=== PATIENT | male | born 1945 | race Caucasian/White ===

== ENCOUNTER 2017-12-10 07:15 | Inpatient (IN) | payer OTHER, MEDICARE ==
[~2017-12-10 07:15] MED LIST: TRANEXAMIC ACID 1,000 MG in NS (SYRINGE) 50 ML IV ONE
[2017-12-10] MEDS ORDERED: THROMBIN (BOVINE) 20,000 UNIT VIAL TP ONE ×2 (09:50→17:27)
[2017-12-10] MEDS ORDERED: CHLORHEXIDINE GLUC HIBICLENS 118 ML BTL TP ONE (09:50)
[2017-12-10] MEDS ORDERED: CITRATE DEXTROSE SOLN 500 ML BAG ONE ×3 (09:50→16:54)
[2017-12-10] MEDS ORDERED: BUPIVACAINE 0.25% 30 ML SDV ONE ×2 (09:50→17:40)
[2017-12-10] MEDS ORDERED: BACITRACIN 50,000 UNITS/10 ML SYR IRR ONE ×2 (09:52→15:24)
[2017-12-10] MEDS ORDERED: morphINE PF 5 MG/10 ML INJ IT ONE (10:13)
[2017-12-10] MEDS ORDERED: ceFAZolin 2 GM/SWFI 2 GM/20 ML SYR IVP ONE (10:13)
[2017-12-10] MEDS ORDERED: fentaNYL 100 MCG/2 ML INJ IT ONE (10:13)
[2017-12-10] MEDS ORDERED: LR 1,000 ML IV ONE (10:14)
--- NOTE | 2017-12-10 11:42 | PDHPUP ---
History & Physical Update H&P update statement: This history and physical update is based on an assessment of the patient which was completed after admission or registration (within 24 hours), but prior to the surgery/procedure. H&P update: H&P reviewed & patient examined, no change in patient's condition since H&P completed
[2017-12-10] MEDS ORDERED: MIDAZOLAM 2 MG/2 ML VIAL IVP ONE (11:50)
--- NOTE | 2017-12-10 11:50 | PDANEPAE ---
ANE History of Present Illness Lumbar stenosis ANE Past Medical History - Cardiovascular History Hx Hypertension: No Hx Arrhythmias: No Hx Chest Pain: No Hx Coronary Artery / Peripheral Vascular Disease: No Hx CHF / Valvular Disease: No Hx Palpitations: No - Pulmonary History Hx COPD: No Hx Asthma/Reactive Airway Disease: No Hx Recent Upper Respiratory Infection: No Hx Oxygen in Use at Home: No Hx Sleep Apnea: No Sleep Apnea Screening Result - Last Documented: Negative Pulmonary History Comment: smoked and quit in age 19's - Neurologic History Hx Cerebrovascular Accident: No Hx Seizures: Yes Hx Dementia: No Neurologic History Comment: December "grand mal seizure in street in [facility]" was under increased pressure. Took seizure Rx x 2 wks- no seizure since. - Endocrine History Hx Diabetes: No - Renal History Hx Renal Disorders: Yes Renal History Comment: BPH symptoms - Liver History Hx Hepatic Disorders: No - Neurological & Psychiatric Hx Hx Neurological and Psychiatric Disorders: Yes Neurological / Psychiatric History Comment: spondylolisthesis-back pain radiates down R leg - Cancer History Hx Cancer: No - Congenital Disorder History Hx Congenital Disorders: No - GI History Hx Gastrointestinal Disorders: No - Other Health History Other Health History: n/a - Chronic Pain History Chronic Pain: Yes (back/R leg) - Surgical History Prior Surgeries: ingunial hernia repair 08-18. Greenlight laser 08-12-17. bilat total knees. throat sx "false Vocal cord". R shoulder sx -late 60's or 70's. knee surgeries ANE Review of Systems Review of Systems: - Exercise capacity METS (RN): 6 METS ANE Patient History - Allergies Allergies/Adverse Reactions: Penicillins Allergy (Verified 11/25/17 15:07) Unknown Quinolones Allergy (Verified 11/25/17 15:07) "IM IN CRUTCHES W/IN A DAY" - Home Medications Home medications: home medication list seen and reviewed Home Medications: Ascorbic Acid [Vitamin C 500 mg (*)] 500 mg PO DAILY 11/18/17 [Last Taken ] Calcium Carbonate [Oyster Shell Calcium 500 mg (*)] 500 mg PO DAILY 11/18/17 [ Last Taken 12/09/17] Herbals/Supplements -Info Only 1 ea PO DAILY 11/18/17 [Last Taken Unknown] Ibuprofen [Motrin (*)] 200 mg PO DAILY PRN 11/18/17 [Last Taken 12/06/17] - NPO status NPO Since - Liquids (Date): 12/09/17 NPO Since - Liquids (Time): 08:30 NPO Since - Solids (Date): 12/09/17 NPO Since - Solids (Time): 20:30 - Anes Hx Anes Hx: no prior problems (Fighting on emergernce ) - Smoking Hx Smoking Status: Former smoker ANE Labs/Vital Signs - Vital Signs Blood Pressure: 139/70 Heart Rate: 54 Respiratory Rate: 16 O2 Sat (%): 96 Height: 160.02 cm Weight: 66.678 kg ANE Physical Exam - Airway Neck exam: FROM Mallampati Score: Class 2 Mouth exam: poor dentition - Pulmonary Pulmonary: clear to auscultation - Cardiovascular Cardiovascular: regular rate and rhythym - ASA Status ASA Status: II ANE Anesthesia Plan Anesthesia Plan: general endotracheal anesthesia
[2017-12-10] MEDS ORDERED: GLYCOPYRROLATE 0.2 MG/1 ML VIAL ONE (12:00)
[2017-12-10] MEDS ORDERED: ROCURONIUM 50 MG/5 ML VIAL ONE (12:00)
[2017-12-10] MEDS ORDERED: fentaNYL 100 MCG/2 ML INJ ONE ×7 (12:01→19:59)
[2017-12-10] MEDS ORDERED: PROPOFOL/EMULSION 500 MG/50 ML BOTTLE IV ONE (12:02)
[2017-12-10] MEDS ORDERED: REMIFENTANIL HCL 1 MG VIAL ONE (12:02)
[2017-12-10] MEDS ORDERED: PROPOFOL 200 MG/20 ML VIAL ONE (12:02)
[2017-12-10] MEDS ORDERED: PHENYLEPHRINE HCL 100 MCG/ML SYR ONE (12:49)
[2017-12-10] MEDS ORDERED: ceFAZolin 1 GM VIAL ONE (15:32)
[2017-12-10] MEDS ORDERED: DEXAMETHASONE 4 MG/ML VIAL ONE (15:33)
[2017-12-10] MEDS ORDERED: PROMETHAZINE HCL 25 MG/ML INJ IVP PRN (17:33)
[2017-12-10] MEDS ORDERED: NALOXONE HCL 0.4 MG/ML INJ IVP PRN ×2 (17:33→18:40)
[2017-12-10] MEDS ORDERED: ONDANSETRON 4 MG/2 ML VIAL IVP PRN ×2 (17:33→18:40)
[2017-12-10] MEDS ORDERED: ONDANSETRON 4 MG/2 ML VIAL ONE (18:18)
[2017-12-10] MEDS ORDERED: diphenhydrAMINE 25 MG CAP PO PRN (18:40)
[2017-12-10] MEDS ORDERED: ONDANSETRON DISINTEGRATING 4 MG TAB PO PRN (18:40)
[2017-12-10] MEDS ORDERED: BISACODYL 10 MG SUPP PR PRN (18:40)
[2017-12-10] MEDS ORDERED: MAGNESIUM HYDROXIDE 30 ML UDCUP PO PRN (18:40)
[2017-12-10] MEDS ORDERED: LACTULOSE 20 GM/30 ML UDCUP PO PRN (18:40)
[2017-12-10] MEDS ORDERED: METHOCARBAMOL 750 MG TAB PO PRN (18:40)
[2017-12-10] MEDS ORDERED: oxyCODONE IR 5 MG TAB PO PRN (18:40)
[2017-12-10] MEDS ORDERED: morphINE PCA 30 MG/30 ML PCA IV PRN (18:40)
--- NOTE | 2017-12-10 18:40 | POSTOPPROG ---
Post Op Note Date of Operation: 12/10/17 Surgeon: Austin Arboleda [employer] Sharpshooter: PENG Jensen Anesthesiologist: MD Chepe Anesthesia: GET(General Endotracheal) Pre-op Diagnosis: L2-S1 DJD/ stenosis, L4/5 grade 2 spondylolisthesis Post-op Diagnosis: same Indication: Severe LBP and leg pain Procedure: L2-S1 TLIF Findings: severe DJD, stenosis L2-S1 Inf/Abcess present in the surg proc area at time of surgery?: No EBL: 100-500 Complications: None Drains: Noah Oden (To bulb suction)
[2017-12-10] MEDS ORDERED: NS W/ 20 KCl/L 1,000 ML IV SCH (18:45)
--- NOTE | 2017-12-10 18:51 | SOAPPROG ---
SOAP Progress Note Assessment/Plan: POST OP CHECK: Assessment: Doing well s/p L2-S1 TLIF Plan: CPM in PACU. transfer to floor per protocol MARK to bulb suction 12/10/17 18:46 Subjective: awake, comfortable, Objective: Vital Signs Temp Pulse Resp BP Pulse Ox 36.4 C 54 L 16 139/70 H 96 12/10/17 11:03 12/10/17 12:43 12/10/17 12:43 12/10/17 12:43 12/10/17 12:43 Neuro: MENDOZA, follows commands x 4, PERRLA nods his head to questions HR: 90 BP:145/70 O2: 100% face mask ICD10 Worksheet Patient Problems: Problems Problem Status Onset Degenerative lumbar spinal stenosis Acute Spondylisthesis Acute - ICD10 Problem Qualifiers (1) Spondylisthesis (2) Degenerative lumbar spinal stenosis
--- NOTE | 2017-12-10 18:56 | POSTANESTH ---
Post Anesthetic Evaluation Cardiovascular Status: Similar to Pre-Op Cond Respiratory Status: Similar to Pre-op Cond. Level of Consciousness/Mental Status: Alert and Oriented Pain Control: Adequate, Prn Tx Ordered Nausea/Vomiting Control: Adequate, Prn Tx Ordered Complications Possibly Related to Anesthesia: None Noted (Somewhat restless. Moving all ext and good vision.)
[2017-12-10] MEDS ORDERED: HYDROmorphONE/DILAUDID 2 MG/ML INJ ONE (18:59)
[2017-12-10] MEDS: fentaNYL 100 MCG/2 ML INJ IVP PRN ×2 (19:02→19:21)
[2017-12-10] MEDS: HYDROmorphONE/DILAUDID 2 MG/ML INJ IVP PRN ×3 (19:04→19:39)
--- NOTE | 2017-12-10 20:33 | GOP ---
[f rep st] OPERATIVE REPORT DATE OF OPERATION: 12/10/2017 SURGEON: Austin Arboleda MD NEUROSURGEON: Austin Arboleda. PAPER TESTER: Joe Jensen. ANESTHESIA: General endotracheal. PREOPERATIVE DIAGNOSIS: 1. Severe multilevel lumbar spinal stenosis with unstable grade 2 L4-5 spondylolisthesis and critica l lateral recess impingement. 2. Intractable low back pain. 3. Right greater than left lower extremity radicular and neurogenic claudication symptoms. 4. Failed conservative care. POSTOPERATIVE DIAGNOSIS: 1. Severe multilevel lumbar spinal stenosis with unstable grade 2 L4-5 spondylolisthesis and critica l lateral recess impingement. 2. Intractable low back pain. 3. Right greater than left lower extremity radicular and neurogenic claudication symptoms. 4. Failed conservative care. PROCEDURE PERFORMED: 1. Right-sided far lateral transpedicular decompression at the L2-3, L3-4, L4-5, and L5-S1 levels wi th L2 through S1 posterior segmental (pedicle screw and axle device) fixation and posterolateral fusi on with local autograft and bone morphogenic protein. 2. L2-3, L3-4, L4-5, and L5-S1 posterior/transforaminal lumbar interbody fusion with 2 structural PE EK interbody spacers, local autograft, and bone morphogenic protein at each level. 3. Use of intraoperative microscopy, fluoroscopy, and computer volumetric stereotactic navigation wi intraoperative neurophysiologic testing. 4. Injection of intrathecal narcotic analgesics and subcutaneous and intramuscular local anesthesia for postoperative pain control. FINDINGS: ESTIMATED BLOOD LOSS: 500 cc. INDICATIONS: The patient is a 72-year-old man with intractable low back pain and right greater than left lower extremity radicular and neurogenic claudication symptoms secondary to severe multilevel cher mbar stenosis and degenerative joint disease and an unstable grade 2 spondylolisthesis at the L4-5 le titus with critical lateral recess impingement multiple levels in addition to the central canal stenosi s. He has failed extensive conservative care and presents now for multilevel surgical decompression and stabilization. DESCRIPTION OF PROCEDURE: After informed consent was obtained, the patient was taken to the operatin g room and placed in the prone position on the Noah table. The lumbosacral area was prepped and d raped in a sterile fashion. After fluoroscopic localization of correct levels, the subcutaneous and intramuscular tissues were infiltrated with local anesthesia. A midline linear incision was then cre ated from approximately L2 through S1. This was carried down to the fascial layer, which was then in cised using the monopolar electrocautery and carried in a subperiosteal plane along the spinous proce sses and lamina bilaterally. Intraoperative fluoroscopy was again utilized to verify the correct lev els. Following this, the dissection was carried out over the facet joints. The microscope was then brought in and after re-verification of the correct levels, right-sided far lateral transpedicular de compressions were performed at the L2-3, L3-4, L4-5, and L5-S1 levels with complete unroofing of the facet joints and neural foramina at L2, L3, L4, L5, and S1. The central canal was widely decompresse d at each level as well and the left-sided lateral recess by angling the microscope and instruments a cross the midline. At the L4-5 level, there was a severe step-off and a facet cyst severely attached to the dura which required removal of more bone and, essentially, a laminectomy in order to safely r emove all of the offending material that was causing severe stenosis. Following adequate decompressi on, the [employer] neuronavigational system was brought in and pedicle screws were placed at L2, L3, L4, L5, and S1 bilaterally using computer volumetric stereotactic navigation with intraoperative neuroph ysiologic testing in order to prevent a cortical breach and postoperative root irritation. Biplanar fluoroscopy was also utilized to verify good position of the screws. Following this, individual shor t rods were placed first at L5-S1, then at L4-5, then at L3-4, then at L2-3 during which time distrac tion was created across the interspaces and complete diskectomies were performed at each level with p reparation of the endplates and placement of 2 structural PEEK interbody spacers with local autograft and bone morphogenic protein for L2-3, L3-4, L4-5, and L5-S1 posterior/transforaminal lumbar interbo dy fusions. Note that the screws took a little more of an angle than I wanted at the L4-5 level and it was very difficult to achieve an excellent diskectomy and placement of the graft due to the spondy lolisthesis. In addition, when I placed the final rods and tried to reduce the spondylolisthesis tani ewhat, the left-sided screw at L4 pulled out partially. I felt that it was in the best interest of t he patient to leave this in place and reinforced this with some local autograft and bone morphogenic protein. A maximum amount of lordosis was placed into the rods in order to prevent flat back syndrom e. A slight amount of compression was created across each interspace in order to facilitate bony uni on and to minimize the potential for posterior graft migration. Following re-verification of good po sition of the screws, rods, and interbody spacers using biplanar fluoroscopy, axle devices were place d at the L2-3 and L5-S1 levels in order to prevent hardware failure and nonunion or junctional kyphos is due to the age and the size of the procedure and high risk for these problems. Following this, th e remaining lamina and facet joints, primarily on the left, were extensively decorticated, and the re sidual local autograft along with bone morphogenic protein was placed out laterally from L2-S1 for an L2-S1 posterolateral fusion. 200 mcg of Duramorph along with 50 mcg of fentanyl were then injected intrathecally for postoperative pain control along with local anesthesia, which was re-injected in th e subcutaneous and intramuscular tissues. Following this, a drain was placed and the wound was close d in a layered fashion using interrupted Vicryl sutures followed by Steri-Strips on the skin. COMPLICATIONS: None. DISPOSITION: The patient was extubated and transferred to the recovery room in stable condition. /[id number]/MODL
[2017-12-10] MEDS: ceFAZolin 2 GM/SWFI 2 GM/20 ML SYR IVP SCH (20:36)
[2017-12-10] MEDS: SENNOSIDES/DOCUSATE SODIUM TAB PO SCH (20:36)
[2017-12-10] MEDS: FAMOTIDINE 20 MG TAB PO SCH (20:37)
[2017-12-10] MEDS: morphINE SR 15 MG TAB PO SCH (20:37)
[2017-12-10] MEDS ORDERED: ceFAZolin 2 GM/DEXTROSE 100 ML IV SCH (22:00)
[2017-12-10] MEDS: POLYETHYLENE GLYCOL 3350 17 GM PKT PO SCH (22:31)
[2017-12-10] MEDS: GABAPENTIN 300 MG CAP PO SCH (22:31)
[2017-12-10] MEDS: ACETAMINOPHEN 500 MG TAB PO SCH (22:31)
[2017-12-11 05:26] LABS: PLATELET COUNT 183 10^3/uL (150-400)
[2017-12-11] MEDS: GABAPENTIN 300 MG CAP PO SCH ×3 (05:26→22:03)
[2017-12-11] MEDS: ACETAMINOPHEN 500 MG TAB PO SCH ×3 (05:26→22:03)
[2017-12-11] MEDS: ceFAZolin 2 GM/SWFI 2 GM/20 ML SYR IVP SCH ×2 (05:26→12:16)
--- NOTE | 2017-12-11 08:29 | SOAPPROG ---
SOAP Progress Note Assessment/Plan: Assessment: POD #1: Doing well s/p L2-S1 TLIF Plan: PT/OT today. Encourage OOB Continue MARK drain Xrays today if he can tolerate them Subjective: awake, but feels tired. Says he slept well. No new weakness, tingling or pain Objective: Vital Signs Temp Pulse Resp BP Pulse Ox 37.2 C 57 L 16 85/53 L 98 12/11/17 07:58 12/11/17 07:58 12/11/17 07:58 12/11/17 07:58 12/11/17 07:58 Laboratory Results 12/11/17 04:25 12/11/17 04:25 12/10/17 12/11/17 12/12/17 05:59 05:59 05:59 Intake Total 3900 Output Total 2950 90 Balance 950 -90 Neuro: Oriented x4 follows commands, speech clear 5/5 bilat DF/PF/EHL sens +LT MARK: 490 since surgery ICD10 Worksheet Patient Problems: Problems Problem Status Onset Degenerative lumbar spinal stenosis Acute Spondylisthesis Acute - ICD10 Problem Qualifiers (1) Spondylisthesis (2) Degenerative lumbar spinal stenosis
[2017-12-11] MEDS: morphINE SR 15 MG TAB PO SCH ×2 (09:43→20:01)
[2017-12-11] MEDS: CALCIUM CARBONATE 500 MG TAB PO SCH (09:43)
[2017-12-11] MEDS: ENOXAPARIN 40 MG/0.4 ML SYR SC SCH (09:43)
[2017-12-11] MEDS: ASCORBIC ACID 500 MG TAB PO SCH (09:43)
[2017-12-11] MEDS: FAMOTIDINE 20 MG TAB PO SCH ×2 (09:43→20:01)
[2017-12-11] MEDS: SENNOSIDES/DOCUSATE SODIUM TAB PO SCH ×2 (09:43→20:01)
[2017-12-11] MEDS: POLYETHYLENE GLYCOL 3350 17 GM PKT PO SCH ×3 (09:44→22:03)
--- NOTE | 2017-12-11 10:18 | ASMTCMCOM ---
CM Note CM Note Notes: Pt admitted for L4/5 spondylolisthesis, s/p L2/S1 TLIF lumbar brink fusion. Pt is and lives alone. PT eval completed; recommending home with a front wheeled walker, other DME to be determined. OT eval pending. Discharge needs remain unclear at this time. CM will continue to follow. Current Discharge Plan: To be determined Date Signed: 12/11/2017 10:17 AM Electronically Signed By:Nora Colmenares RN
--- NOTE | 2017-12-11 10:54 | PDMN ---
Medical Necessity Medical necessity: [facility] IP only surgery; cpt 82189, [id number] L2-S1 TLIF
[2017-12-11] MEDS: TAMSULOSIN HCL 0.4 MG CAP PO SCH (13:06)
[2017-12-12] MEDS: ACETAMINOPHEN 500 MG TAB PO SCH ×3 (05:55→21:14)
[2017-12-12] MEDS: GABAPENTIN 300 MG CAP PO SCH ×3 (05:55→21:15)
--- NOTE | 2017-12-12 08:12 | NEUSURGPN ---
Assessment/Plan: Assessment/Plan: Assessment: POD #2 Doing well s/p L2-S1 TLIF Lightheaded this morning but H/H stable Plan: PT/OT today. Encourage OOB Continue MARK drain- 510 output in last 24 hours Unable to void on his own, catheter placed Xrays show stable hardware placement Subjective: Doing well, was up with PT yesterday. Feeling somewhat lightheaded but improved this am. Denies fever, chills. - Physician Discussed Patient with : [facility] Physical Exam - Vitals, I&O, Labs I and O 12/11/17 12/12/17 12/13/17 05:59 05:59 05:59 Intake Total 3900 1750 Output Total 2950 3910 Balance 950 -2160 Weight 66.678 kg 66.678 kg Intake: Oral (ml) 1400 1750 IV Intake (ml) 2500 Output: Urine (ml) 2050 3400 Catheter 2050 3400 Estimated Blood Loss (ml) 500 MARK Drain Output (ml) 400 510 Back Noha Oden 400 510 Other: Intake Quantity Yes Sufficient Output Comment Catheter straight cath Number of Voids Catheter 1 1 Vital Signs Temp Pulse Resp BP Pulse Ox 36.7 C 65 16 94/51 L 90 L 12/12/17 07:41 12/12/17 07:41 12/12/17 07:41 12/12/17 07:41 12/12/17 07:41 Laboratory Results 12/11/17 04:25 12/11/17 04:25 ICD10 Worksheet Patient Problems: Problems Problem Status Onset Degenerative lumbar spinal stenosis Acute Spondylisthesis Acute
[2017-12-12] MEDS: CALCIUM CARBONATE 500 MG TAB PO SCH (08:36)
[2017-12-12] MEDS: TAMSULOSIN HCL 0.4 MG CAP PO SCH (08:36)
[2017-12-12] MEDS: SENNOSIDES/DOCUSATE SODIUM TAB PO SCH ×2 (08:36→21:15)
[2017-12-12] MEDS: morphINE SR 15 MG TAB PO SCH ×2 (08:36→21:15)
[2017-12-12] MEDS: ASCORBIC ACID 500 MG TAB PO SCH (08:37)
[2017-12-12] MEDS: FAMOTIDINE 20 MG TAB PO SCH ×2 (08:37→22:35)
[2017-12-12] MEDS: POLYETHYLENE GLYCOL 3350 17 GM PKT PO SCH ×3 (08:37→21:23)
[2017-12-12] MEDS: ENOXAPARIN 40 MG/0.4 ML SYR SC SCH (08:37)
--- NOTE | 2017-12-12 09:43 | ASMTCMCOM ---
CM Note CM Note Notes: PT recommending home w/walker, OT- home. Met w/pt to discuss. He lives w/his 26 y/o son in apt on 3rd floor with no elevator but he feels he can manage the stairs to get to apt with his son as stand by assist. Once in his apt there are no stairs. Pt does not feel he needs additional help at this time. Anticipate dc home w/son w/no CM needs. Date Signed: 12/12/2017 09:43 AM Electronically Signed By:Lois Joya RN
[2017-12-13] MEDS: GABAPENTIN 300 MG CAP PO SCH (05:40)
[2017-12-13] MEDS: ACETAMINOPHEN 500 MG TAB PO SCH (06:30)
--- NOTE | 2017-12-13 08:13 | SOAPPROG ---
SOAP Progress Note Assessment/Plan: Assessment: POD #3: Doing well s/p L2-S1 TLIF Plan: DC home with HHC today. Continue MARK drain upon DC 12/13/17 08:10 12/13/17 08:19 Subjective: awake, alert,pain well controlled he is urinating well ambulating well and quite mobile. He is eager to DC home in care of son. Objective: Vital Signs Temp Pulse Resp BP Pulse Ox 37.1 C 58 L 17 113/68 97 12/13/17 00:00 12/13/17 00:00 12/13/17 00:00 12/13/17 00:00 12/13/17 00:00 Laboratory Results 12/11/17 04:25 12/11/17 04:25 12/12/17 12/13/17 12/14/17 05:59 05:59 05:59 Intake Total 1750 1950 500 Output Total 3910 2470 Balance -2160 -520 500 Post op xrays show well positioned hardware L2-S1 Neuro: MENDOZA, sens +Lt ambulatory Incision: CDI MARK: 320 ml overnight ICD10 Worksheet Patient Problems: Problems Problem Status Onset Degenerative lumbar spinal stenosis Acute Spondylisthesis Acute - ICD10 Problem Qualifiers (1) Spondylisthesis (2) Degenerative lumbar spinal stenosis
--- NOTE | 2017-12-13 08:22 | PDIAF ---
- Diagnosis Diagnosis: Lumbar DJD L2-S1 Code Status: Full Code - Medication Management Discharge Medications: Medications to Continue on Transfer Ascorbic Acid [Vitamin C 500 mg (*)] 500 mg PO DAILY 11/18/17 [Last Taken ] Calcium Carbonate [Oyster Shell Calcium 500 mg (*)] 500 mg PO DAILY 11/18/17 [ Last Taken 12/09/17] Herbals/Supplements -Info Only 1 ea PO DAILY 11/18/17 [Last Taken Unknown] Acetaminophen [Tylenol ES 500 mg (*)] 1,000 mg PO Q8HRS tab 12/12/17 [Last Taken Unknown] Methocarbamol [Robaxin 750 mg (*)] 750 mg PO QID PRN tab 12/12/17 [Last Taken Unknown] Sennosides/Docusate Sodium [Senokot-S] 1 - 2 tab PO BID tab 12/12/17 [Last Taken Unknown] morphINE SR [Ms Contin/Oramorph 15 mg (*)] 15 mg PO BID tab 12/12/17 [Last Taken Unknown] oxyCODONE IR [Oxycodone Ir (*)] 5 - 10 mg PO Q4HRS PRN tab 12/12/17 [Last Taken Unknown] Discharge Medications: Refer to the Discharge Home Medication list for PRN reason. - Orders Services needed: Physical Therapy, Occupational Therapy Diet Recommendation: no restrictions on diet Diet Texture: Regular Texture Diet Byron Stockings Discontinue Date: wear for 5 more days at home Wound Care Instructions: Check incision daily and call with any redness, drainage or increasing pain Activity/Weight Bearing Restrictions: no bending, twisting or lifting over 10 lbs. wear LSO when OOB Equipment: LSO brace Additional Instructions: no bending lifting twisting >10lbs walking and light activity encouraged Wear LSO when out of bed Keep MARK drain in place and call office Saturday with drainage output in 12 hour increments - Follow Up Care Current Providers and Referrals: Juani Cline MD [Primary Care Provider] -
[2017-12-13 08:47] VITALS: BP 128/75
[2017-12-13] MEDS: SENNOSIDES/DOCUSATE SODIUM TAB PO SCH (09:01)
[2017-12-13] MEDS: POLYETHYLENE GLYCOL 3350 17 GM PKT PO SCH (09:01)
[2017-12-13] MEDS: TAMSULOSIN HCL 0.4 MG CAP PO SCH (09:02)
[2017-12-13] MEDS: FAMOTIDINE 20 MG TAB PO SCH (09:02)
[2017-12-13] MEDS: ASCORBIC ACID 500 MG TAB PO SCH (09:02)
[2017-12-13] MEDS: morphINE SR 15 MG TAB PO SCH (09:02)
[2017-12-13] MEDS: ENOXAPARIN 40 MG/0.4 ML SYR SC SCH (09:03)
[2017-12-13] MEDS: CALCIUM CARBONATE 500 MG TAB PO SCH (09:03)
--- NOTE | 2017-12-14 14:43 | ASDISCHSUM ---
Discharge Information Plan Status: Medically Cleared to Leave: Discharge Date:12/13/2017 12:26 PM D/C Disposition: [facility] D/C Disposition:[id number] Projected Discharge Date:12/13/2017 11:00 AM Transportation at D/C: Discharge Delay Reason: Follow-Up Date:12/13/2017 11:00 AM Discharge Slot: Final Diagnosis: Placement Information Referral Type:*Home Health Care Services Referral ID:[id number] Provider Name:[facility] Address 1:[address] Address 2: City:[place] Selection Factors: State:[place] Patient Contact Information Contact Name:NUVIA Relationship:Son Address: Work Phone: City: [facility] Phone: [facility] Code: Email: Financial Information Financial Class:Medicare Primary Plan Desc:MEDICARE INPATIENT Primary Plan Number:[id number] Secondary Plan Desc:[employer]/MDR SUPPLEMENT Secondary Plan Number:[id number] Assessment Information [facility] CM Progress Note CM Note CM Note Notes: Pt admitted for L4/5 spondylolisthesis, s/p L2/S1 TLIF lumbar brink fusion. Pt is and lives alone. PT eval completed; recommending home with a front wheeled walker, other DME to be determined. OT eval pending. Discharge needs remain unclear at this time. CM will continue to follow. Current Discharge Plan: To be determined Date Signed: 12/11/2017 10:17 AM Electronically Signed By:Nora Colmenares RN [facility] CM Progress Note CM Note CM Note Notes: PT recommending home w/walker, OT- home. Met w/pt to discuss. He lives w/his 26 y/o son in apt on 3rd floor with no elevator but he feels he can manage the stairs to get to apt with his son as stand by assist. Once in his apt there are no stairs. Pt does not feel he needs additional help at this time. Anticipate dc home w/son w/no CM needs. Date Signed: 12/12/2017 09:43 AM Electronically Signed By:Lois Joya RN Case Management Discharge Plan Note Case Management Discharge Discharge Order Complete? Answers: Yes Patient to Obtain Answers: via Family Medications Transportation Arranged Answers: Family/Friends Faxed Final Orders Answers: No Notes: avaialable on [place] Agency/Facility Transfer Answers: No Notes: avail on [place] Report Printed & Faxed to Receiving Agency Family Notified Answers: Yes Discharge Comments Notes: Pt will dc home today with son. PA ordered Home PT/OT; met w/pt to discuss. Pt stated he would like to have C initially w/[facility] and is agreeable to Medicare homebound policy. Address/# confirmed. Spoke w/Annette at [facility]- they can accept. Orders available on [place]. Discussed w/RN who will call report. Date Signed: 12/13/2017 10:05 AM Electronically Signed By:Lois Joya RN Intervention Information Intervention Type:*IM-Signed Date of Service:12/13/2017 10:00 AM Patient Type:Inpatient Staff Member:Niya Suarez Hours: Discipline: Severity: Comment:
== END 2017-12-13 12:26 | disposition home health service (06) | DRG 455 ==
LOC: F3N 10:04
PROVIDERS: ADMIT Neurological Surgery; ATTEND Neurological Surgery
DX: M48.062 Spinal stenosis, lumbar region with neurogenic claudication (principal); M43.16 Spondylolisthesis, lumbar region; M54.16 Radiculopathy, lumbar region; G40.909 Epilepsy, unspecified, not intractable, without status epilepticus; Z87.891 Personal history of nicotine dependence
CPT/HCPCS: 97116-GP; 97161-GP; 97166-GO; 97535-GO; C1713; G8978-GP-CI; G8979-GP-CI; G8980-GP-CI; G8987-GO-CI; G8988-GO-CI; J0171; J0690; J1100; J1170; J1650; J2250; J2270; J2274; J2370; J2405; J2704; J3010; J7060

== ENCOUNTER 2018-02-13 11:20 | Observation (INO) | payer OTHER, MEDICARE ==
[2018-02-13] MEDS ORDERED: GENTAMICIN SULFATE 120 MG in D5W 100 ML IV ONE (11:44)
[2018-02-13] MEDS ORDERED: LIDOCAINE 1% 2 ML INJ ID PRN (11:46)
[2018-02-13] MEDS ORDERED: LR 1,000 ML IV ONE (11:46)
--- NOTE | 2018-02-13 13:36 | PDHPUP ---
History & Physical Update H&P update statement: This history and physical update is based on an assessment of the patient which was completed after admission or registration (within 24 hours), but prior to the surgery/procedure. H&P update: no change in patient's condition since H&P completed
[2018-02-13] MEDS ORDERED: MIDAZOLAM 2 MG/2 ML VIAL IVP ONE (13:57)
[2018-02-13] MEDS ORDERED: oxyCODONE IR 5 MG TAB PO PRN (13:58)
[2018-02-13] MEDS ORDERED: ALBUTEROL 3 ML DEYVIAL IH PRN (13:58)
[2018-02-13] MEDS ORDERED: MEPERIDINE 25 MG/0.5 ML AMP IVP PRN (13:58)
[2018-02-13] MEDS ORDERED: HYDROmorphone HCL/NS 0.5 MG/ML SYR IVP PRN (13:58)
[2018-02-13] MEDS ORDERED: NALOXONE HCL 0.4 MG/ML INJ IVP PRN (13:58)
[2018-02-13] MEDS ORDERED: LABETALOL HCL 5 MG/ML 20 ML MDV IVP PRN (13:58)
[2018-02-13] MEDS ORDERED: ONDANSETRON 4 MG/2 ML VIAL IVP PRN ×2 (13:58→16:51)
[2018-02-13] MEDS ORDERED: DEXAMETHASONE 4 MG/ML VIAL IVP PRN (13:58)
[2018-02-13] MEDS ORDERED: fentaNYL 250 MCG/5 ML INJ ONE (14:49)
[2018-02-13] MEDS ORDERED: DEXAMETHASONE 4 MG/ML VIAL ONE (15:23)
[2018-02-13] MEDS ORDERED: ONDANSETRON 4 MG/2 ML VIAL ONE (15:23)
[2018-02-13] MEDS ORDERED: ROCURONIUM 50 MG/5 ML VIAL ONE (15:24)
[2018-02-13] MEDS ORDERED: SUCCINYLCHOLINE CHLORIDE 200 MG/10 ML SYR IVP ONE (15:24)
[2018-02-13] MEDS ORDERED: PROPOFOL 200 MG/20 ML VIAL ONE (15:48)
--- NOTE | 2018-02-13 15:52 | PDANEPAE ---
ANE Past Medical History - Cardiovascular History Hx Hypertension: No Hx Arrhythmias: No Hx Chest Pain: No Hx Coronary Artery / Peripheral Vascular Disease: No Hx CHF / Valvular Disease: No Hx Palpitations: No - Pulmonary History Hx COPD: No Hx Asthma/Reactive Airway Disease: No Hx Recent Upper Respiratory Infection: No Hx Oxygen in Use at Home: No Hx Sleep Apnea: No Sleep Apnea Screening Result - Last Documented: Negative Pulmonary History Comment: smoked and quit in age 19's - Neurologic History Hx Cerebrovascular Accident: No Hx Seizures: Yes Hx Dementia: No Neurologic History Comment: December "grand mal seizure in street in [facility]" was under increased pressure. Took seizure Rx x 2 wks- no seizure since. - Endocrine History Hx Diabetes: No - Renal History Hx Renal Disorders: Yes Renal History Comment: BPH symptoms, NOCTURIA X4-6;. BLADDER NECK CONTRACTURE - Liver History Hx Hepatic Disorders: No - Neurological & Psychiatric Hx Hx Neurological and Psychiatric Disorders: Yes Neurological / Psychiatric History Comment: SOME LOW BACK PAIN S/P LUMBAR FUSION Dec. - Cancer History Hx Cancer: No - Congenital Disorder History Hx Congenital Disorders: No - GI History Hx Gastrointestinal Disorders: No - Other Health History Other Health History: OA MOST JOINTS- HANDS. - Chronic Pain History Chronic Pain: Yes (back/R leg) - Surgical History Prior Surgeries: L2/S1 LUMBAR FUSION W/HARDWARE 12-10-17;. ingunial hernia repair 08-18. Greenlight laser 08-12-17. bilat total knees. throat sx "false Vocal cord". R shoulder sx -late 60's or 70's. knee surgeries ANE Review of Systems Review of Systems: - Exercise capacity METS (RN): 4 METS ANE Patient History - Allergies Allergies/Adverse Reactions: Penicillins Allergy (Verified 02/05/18 11:39) Unknown Quinolones Allergy (Verified 02/05/18 11:39) "IM IN CRUTCHES W/IN A DAY" - Home Medications Home Medications: Ascorbic Acid [Vitamin C 500 mg (*)] 500 mg PO DAILY 11/18/17 [Last Taken ] Calcium Carbonate [Oyster Shell Calcium 500 mg (*)] 500 mg PO DAILY 11/18/17 [ Last Taken 02/12/18] Herbals/Supplements -Info Only 1 ea PO DAILY 11/18/17 [Last Taken 02/11/18] Acetaminophen [Tylenol ES 500 mg (*)] 1,000 mg PO DAILY PRN 01/30/18 [Last Taken 02/12/18] Cholecalciferol Vit D3 [Vitamin D3 (*)] 1,000 units PO DAILY 01/30/18 [Last Taken 02/11/18] Glucosamine/Chondroitin [Glucosamine/Chondroitin (*)] 1 each PO DAILY 01/30/18 [ Last Taken 02/11/18] morphINE SR [Ms Contin/Oramorph 15 mg (*)] 15 mg PO HS PRN 01/30/18 [Last Taken 02/11/18] oxyCODONE IR [Oxycodone Ir (*)] 5 mg PO HS PRN 01/30/18 [Last Taken 02/11/18] - NPO status NPO Since - Liquids (Date): 02/13/18 NPO Since - Liquids (Time): 09:30 NPO Since - Solids (Date): 02/12/18 NPO Since - Solids (Time): 17:00 - Smoking Hx Smoking Status: Former smoker ANE Labs/Vital Signs - Vital Signs Blood Pressure: 131/66 Heart Rate: 55 Respiratory Rate: 15 O2 Sat (%): 93 Height: 161.29 cm Weight: 67.132 kg ANE Physical Exam - Airway Mallampati Score: Class 1 Mouth exam: normal dental/mouth exam - Pulmonary Pulmonary: no respiratory distress - Cardiovascular Cardiovascular: regular rate and rhythym - ASA Status ASA Status: II ANE Anesthesia Plan Anesthesia Plan: general endotracheal anesthesia
--- NOTE | 2018-02-13 16:28 | POSTOPPROG ---
Post Op Note Date of Operation: 02/13/18 Surgeon: Obdulia Tuttle (# [id number]) Anesthesia: GET(General Endotracheal) Pre-op Diagnosis: BPH w/ BNC Post-op Diagnosis: BPH w/ BNC Procedure: TURBNC, TURP Findings: See op note Inf/Abcess present in the surg proc area at time of surgery?: No EBL: Minimal Complications: None Specimen(s): Prostate
--- NOTE | 2018-02-13 16:45 | POSTANESTH ---
Post Anesthetic Evaluation Respiratory Status: Normal, Stable Level of Consciousness/Mental Status: Can Participate in Eval Pain Control: Adequate, Prn Tx Ordered Nausea/Vomiting Control: Adequate, Prn Tx Ordered Complications Possibly Related to Anesthesia: None Noted
[2018-02-13] MEDS ORDERED: PROMETHAZINE HCL 25 MG/ML INJ IVP PRN (16:51)
[2018-02-13] MEDS ORDERED: OPIUM/BELLADONNA ALKALO SUPP PR PRN (16:51)
[2018-02-13] MEDS ORDERED: LIDOCAINE 2% JELLY 5 ML TUBE TP PRN (16:51)
[2018-02-13] MEDS ORDERED: ZOLPIDEM TARTRATE 5 MG TAB PO PRN (16:51)
[2018-02-13] MEDS ORDERED: HYDROmorphONE/DILAUDID 1 MG/ML INJ IVP PRN (16:51)
[2018-02-13] MEDS ORDERED: HYDROCODONE/APAP 5/325 TAB PO PRN (16:51)
[2018-02-13] MEDS ORDERED: D5W 1/2 NS 1,000 ML IV SCH (17:00)
[2018-02-13] MEDS ORDERED: fentaNYL 100 MCG/2 ML INJ ONE (17:11)
[2018-02-13] MEDS: fentaNYL 100 MCG/2 ML INJ IVP PRN ×3 (17:14→17:45)
--- NOTE | 2018-02-13 19:21 | GOP ---
[f rep st] OPERATIVE REPORT DATE OF OPERATION: 02/13/2018 SURGEON: Obdulia Tuttle MD ANESTHESIA: General endotracheal. 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 PROCEDURE PERFORMED: 1. Transurethral resection of bladder neck contracture. 2. Transurethral resection of residual prostate adenoma. FINDINGS: Residual prostate adenoma with a significantly flow limiting bladder neck contracture. SPECIMENS: Prostate tissue. ESTIMATED BLOOD LOSS: Minimal. INDICATIONS: This gentleman underwent GreenLight photovaporization of the prostate in late 2017. He has had some persistent obstructive and irritative voiding symptoms since then. Subsequent evaluation in the office revealed a significantly obstructing bladder neck contracture with some residual prostate adenoma. The patient presents for operative management of these issues at this time. The indications for the procedures as well as potential risks and complications were discussed with the patient preoperatively. He appeared to understand, his questions were answered, and he wished to proceed. Written informed surgical consent was thereafter obtained. DESCRIPTION OF PROCEDURE: The patient was brought to the operating room and administered general endotracheal anesthesia. He was carefully placed in the dorsal lithotomy position on the cystoscopic table. The genital area was sterilely prepped with Betadine scrub and paint, then draped in the usual sterile fashion. Cystoscopy was initially performed with a 30-degree lens through a 22-Telugu sheath. Anterior urethra was unremarkable. Posterior urethra revealed some residual circumferential prostate adenoma. More prominently, however, was a significantly flow limiting bladder neck contracture that was approximately 61-97-Adywyy in diameter. There were also some adherent calcifications to the prostatic mucosal surface in a few different locations where vaporization had been previously performed. I then inserted the 26-Telugu resectoscope sheath along with the laser resectoscope and a standard resecting loop. Using continuous flow with normal saline, resection of the bladder neck contracture and prostate was then performed. Once I was able get my scope into the bladder, the bladder was evaluated and no abnormalities were appreciated. The bladder was moderately trabeculated. Ureteral orifices were normal in regards to shape and position along the trigone. As I continued my circumferential resection of the prostate and bladder neck, starting at the level of the bladder neck and continuing back toward the verumontanum, I resected from a depth standpoint until prostate capsular fibers were approximated circumferentially. Hemostasis was maintained using cauterization and coagulation as necessary. At the conclusion of the resection process, all of the resected prostate and bladder neck tissue was removed from the bladder using an Ellik evacuator. The laser resectoscope was then reinserted with a button electrode. The button was used to cauterize the prostatic mucosal surface for hemostasis purposes. At the conclusion of the procedure, the instruments were removed. It should be noted that no resection had taken place proximal to the bladder neck nor distal to the verumontanum. The ureteral orifices were noted to be unharmed at the conclusion of the case. Following instrument removal, a 22-Telugu, 3-way Funk catheter was inserted with the use of a catheter guide. 35 cc of sterile water was placed in the balloon. Continuous irrigation was initiated. The catheter irrigated manually without difficulty and the return was light pink. The catheter was connected to bag drainage. The patient was awakened, transferred to his bed, and the patient was awakened, extubated, transferred to his bed, then taken to the recovery room. He tolerated the procedure well overall. COMPLICATIONS: None. DISPOSITION: He was transferred to the recovery room in stable condition and will be admitted overnight for continuous irrigation. /[id number]/MODL MTDD
--- NOTE | 2018-02-14 09:13 | SOAPPROG ---
SOAP Progress Note Assessment/Plan: Assessment: POD 1 s/p TURBNC/TURP - doing well. Plan: 1. Voiding trial. D/C home after that. 2. Another IV dose of gentamicin today, then d/c home w/ 3 days of Bactrim DS. 02/14/18 09:20 Subjective: No complaints. Concerned about developing an infection which could impact his spinal hardware. Objective: Vital Signs Temp Pulse Resp BP Pulse Ox 36.5 C 51 L 16 102/61 94 02/14/18 08:06 02/14/18 08:06 02/14/18 08:06 02/14/18 08:06 02/14/18 08:06 02/13/18 02/14/18 02/15/18 05:59 05:59 05:59 Intake Total 960 Output Total 1400 Balance -440 Physical Exam - Physical Exam General Appearance: WD/WN, alert, no apparent distress Abdomen: soft Male Genitalia: other (urine clear via Funk on low-rate CBI) Neuro/Psych: alert, normal mood/affect, oriented x 3 ICD10 Worksheet Patient Problems: Problems Problem Status Onset Degenerative lumbar spinal stenosis Acute Spondylisthesis Acute
--- NOTE | 2018-02-14 09:45 | ASMTCMCOM ---
CM Note CM Note Notes: chart reviewed for discharge planning purposes. Patient s/p resection of residual prostate adenoma. Likely to discharge later this morning. No needs identified CM available should needs arise. Plan: Discharge to home independently with family support. Date Signed: 02/14/2018 09:44 AM Electronically Signed By:Rebecca Black RN
[2018-02-14] MEDS ORDERED: GENTAMICIN SULFATE 120 MG in D5W 100 ML IV ONE (10:00)
[2018-02-14] MEDS ORDERED: PHENAZOPYRIDINE HCL 200 MG TAB PO SCH (10:00)
[2018-02-14 11:53] VITALS: BP 110/58
== END 2018-02-14 14:02 | disposition home or self-care (01) ==
LOC: F1N 11:20
PROVIDERS: ADMIT Specialist; ATTEND Specialist
PROC: 0VT08ZZ Resection of Prostate, Via Natural or Artificial Opening Endoscopic (ICD-10-PCS; principal; 2018-02-13 13:00)
DX: N32.0 Bladder-neck obstruction (principal); N40.1 Benign prostatic hyperplasia with lower urinary tract symptoms
CPT/HCPCS: 52640; 88305; J0330; J1100; J1580; J2250; J2405; J2704; J3010

== ENCOUNTER → 2018-03-14 | Outpatient (CLI) | payer OTHER, MEDICARE | LOC: FIMAGING 10:36 | PROVIDERS: ATTEND Neurological Surgery | DX: Z98.1 Arthrodesis status (principal) ==

== ENCOUNTER → 2018-06-13 | Outpatient (CLI) | payer OTHER, MEDICARE | LOC: FIMAGING 10:18 | PROVIDERS: ATTEND Physician Assistant Surgical | DX: Z09 Encounter for follow-up examination after completed treatment for conditions other than malignant neoplasm (principal); Z98.1 Arthrodesis status ==

== ENCOUNTER → 2018-09-08 | Outpatient (CLI) | payer OTHER, MEDICARE | LOC: FIMAGING 18:07 | PROVIDERS: ATTEND Physician Assistant Surgical | DX: Z98.1 Arthrodesis status (principal) ==

== ENCOUNTER → 2018-11-19 | Outpatient (CLI) | payer OTHER, MEDICARE | LOC: FIMAGING 09:01 | PROVIDERS: ATTEND Physician Assistant Surgical | DX: M54.5 Low back pain (principal); Z98.1 Arthrodesis status ==